=== PATIENT | female | born 1995 | race Caucasian/White ===

== ENCOUNTER 2023-06-16 09:08 | Emergency (ER) | payer OTHER ==
[2023-06-16] MEDS ORDERED: LORazepam 1 MG TAB PO STA (09:50)
--- NOTE | 2023-06-16 09:54 | CT ---
EXAMINATION TYPE: CT brain wo con CT DLP: 1027.4 mGycm, Automated exposure control for dose reduction was used. DATE OF EXAM: 06/16/2023 9:50 AM COMPARISON: None. CLINICAL INDICATION:Female, 27 years old with history of trauma, concussion symptoms, head pain TECHNIQUE: Brain: Multiple axial CT images of the brain were obtained without IV contrast. Coronal and sagittal reformats reviewed. FINDINGS: Brain: Extra-axial spaces: No abnormal extra-axial fluid collections. Ventricular system: Within normal limits Cerebral parenchyma: No acute intraparenchymal hemorrhage or mass effect. The goins-white junction is well differentiated. Cerebellum: Unremarkable. Mass effect: No evidence of midline shift. Intracranial vasculature: unremarkable Soft tissues: Normal. Calvarium/osseous structures: No depressed skull fracture. Paranasal sinuses and mastoid air cells: Clear Visualized orbits: Orbital contents are intact. IMPRESSION: No acute intracranial process.
--- NOTE | 2023-06-16 09:56 | ED ---
Head Injury HPI - General Chief complaint: Head Injury Stated complaint: concussion symptoms Time Seen by Provider: 06/16/23 09:31 Source: patient, RN notes reviewed Mode of arrival: ambulatory Limitations: no limitations - History of Present Illness Initial comments: Patient is a 27-year-old female presenting to the emergency room with further evaluation after a head injury at work on Sunday06/12/2023. After the injury she presented to urgent care and obtain an x-ray of her skull identifying no fractures and was advised that she had concussive symptoms, she was kept off work for 24 hours and return to work yesterday. She states that since returning to work she has had a return in generalized headache, or areas of confusion and labile mood. She denies any focal neurological deficits including any vision changes. She reports occasional nausea without vomiting. She denies any new trauma but does report that her work is stressful and strenuous. She denies any other complaints or concerns at this time. She has a past medical history significant for asthma. - Related Data Allergies/Adverse reactions: Allergies Allergy/AdvReac Type Severity Reaction Status Date / Time prednisone AdvReac Nausea & Verified 06/16/23 09:22 Vomiting Review of Systems ROS Statement: Those systems with pertinent positive or pertinent negative responses have been documented in the HPI. ROS Other: All systems not noted in ROS Statement are negative. Past Medical History Past Medical History: Asthma Additional Past Surgical History / Comment(s): right shoulder, right wrist. Past Psychological History: No Psychological Hx Reported Smoking Status: Never smoker Past Alcohol Use History: Occasional Past Drug Use History: Marijuana General Exam Limitations: no limitations General appearance: alert, in no apparent distress Head exam: Present: normocephalic, normal inspection Expanded Head exam: Absent: laceration, abrasion Eye exam: Present: normal appearance, PERRL, EOMI. Absent: scleral icterus, conjunctival injection, nystagmus, periorbital swelling ENT exam: Present: normal exam, mucous membranes moist Neck exam: Present: normal inspection, full ROM. Absent: tenderness Respiratory exam: Absent: respiratory distress, accessory muscle use Cardiovascular Exam: Present: regular rate GI/Abdominal exam: Absent: distended Extremities exam: Present: normal inspection, full ROM. Absent: pedal edema, joint swelling Back exam: Present: normal inspection, full ROM Neurological exam: Present: alert, oriented X3, CN II-XII intact Psychiatric exam: Present: anxious Skin exam: Present: warm, dry, intact, normal color. Absent: rash Course Vital Signs 06/16/23 06/16/23 09:18 10:45 Temperature 98.6 F 98.4 F Pulse Rate 100 89 Respiratory 18 18 Rate Blood Pressure 132/78 129/78 O2 Sat by Pulse 100 100 Oximetry Medical Decision Making - Medical Decision Making Was pt. sent in by a medical professional or institution (, PA, INSURANCE CLAIMS PROCESSOR, urgent care, hospital, or skilled nursing...) When possible be specific @ -No Did you speak to anyone other than the patient for history (EMS, parent, family, police, friend...)? What history was obtained from this source @ -No Did you review nursing and triage notes (agree or disagree)? Why? @ -I reviewed and agree with nursing and triage notes Were old charts reviewed (outside hosp., previous admission, EMS record, old EKG, old radiological studies, urgent care reports/EKG's, skilled nursing records)? Report findings @ -No old charts were reviewed Differential Diagnosis (chest pain, altered mental status, abdominal pain women, abdominal pain men, vaginal bleeding, weakness, fever, dyspnea, syncope, headache, dizziness, GI bleed, back pain, seizure, CVA, palpatations, mental health, musculoskeletal)? @ -Differential Headache: Migraine, tension, cluster, carbon monoxide, central venous thrombosis, pension karma temporal arteritis, acute closure glaucoma, intercranial hemorrhage, mastoiditis, sinusitis, head injury, this is not meant to be an all-inclusive list. EKG interpreted by me (3pts min.). @ -None done X-rays interpreted by me (1pt min.). @ -None done CT interpreted by me (1pt min.). @ -CT of the brain without contrast: No acute intracranial process, no hemorrhage, mass or shift. No skull fractures. U/S interpreted by me (1pt. min.). @ -None done What testing was considered but not performed or refused? (CT, X-rays, U/S, labs)? Why? @ -None What meds were considered but not given or refused? Why? @ -Analgesics offered and declined. Did you discuss the management of the patient with other professionals (professionals i.e. , PA, INSURANCE CLAIMS PROCESSOR, lab, RT, psych nurse, social worker masters, brick burner head, teacher, fundraising officer, case worker)? Give summary @ -No Was smoking cessation discussed for >3mins.? @ -No Was critical care preformed (if so, how long)? @ -No Were there social determinants of health that impacted care today? How? (Homelessness, low income, unemployed, alcoholism, drug addiction, transportation, low edu. Level, literacy, decrease access to med. care, correction, rehab)? @ -No Was there de-escalation of care discussed even if they declined (Discuss DNR or withdrawal of care, Hospice)? DNR status @ -No What co-morbidities impacted this encounter? (DM, HTN, Smoking, COPD, CAD, Cancer, CVA, ARF, Chemo, Hep., AIDS, mental health diagnosis, sleep apnea, morbid obesity)? @ -None Was patient admitted / discharged? Hospital course, mention meds given and route, prescriptions, significant lab abnormalities, going to OR and other pertinent info. @ -hospital course Undiagnosed new problem with uncertain prognosis? @ -27-year-old female presenting to the emergency room for further evaluation of dizziness and headache which she is having ongoing since hitting her head on a metal bar at work 4 days ago. She was evaluated in urgent care and had an x-ray which showed no acute abnormalities. She is concerned regarding her symptoms and is quite anxious. She denies any analgesic need. Advised that the symptoms are consistent with concussive symptoms and imaging of computed tomography scan not necessary for diagnosing concussion. Patient very concerned regarding headache and dizziness and is requesting to have computed tomography scan completed. Will obtain computed tomography scan of the brain and give a dose of oral Ativan for anxiety. Computed tomography scan negative for acute findings. Again discuss concussive symptoms and treatment for headache along with rest. Anxiety levels improved after oral Ativan without side effects. Questions and concerns answered. Return parameters to the emergency room discussed. Will discharge home in stable condition with symptomatic management and monitoring of concussion without loss of consciousness and closed head injury symptoms advising follow-up with primary care provider. Drug Therapy requiring intensive monitoring for toxicity (Heparin, Nitro, Insulin, Cardizem)? @ -No Were any procedures done? @ -No Diagnosis/symptom? @ -Concussion without loss of consciousness Acute, or Chronic, or Acute on Chronic? @ -Acute Uncomplicated (without systemic symptoms) or Complicated (systemic symptoms)? @ -Uncomplicated Side effects of treatment? @ -No Exacerbation, Progression, or Severe Exacerbation? @ -No Poses a threat to life or bodily function? How? (Chest pain, [place], [place], pneumonia, PE, COPD, DKA, ARF, appy, cholecystitis, CVA, Diverticulitis, Homicidal, Suicidal, threat to staff... and all critical care pts) @ -No Diagnosis/symptom? @ -Closed head injury Acute, or Chronic, or Acute on Chronic? @ -Acute Uncomplicated (without systemic symptoms) or Complicated (systemic symptoms)? @ -Uncomplicated Side effects of treatment? @ -none Exacerbation, Progression, or Severe Exacerbation] @ -no Poses a threat to life or bodily function? @ -no Case discussed with Dr. Hawley. Disposition Clinical Impression: Concussion without loss of consciousness, Closed head injury Disposition: HOME SELF-CARE Condition: Stable Instructions (If sedation given, give patient instructions): Concussion (ED) Additional Instructions: Please rest and refrain from returning to work until 10 days post incident due to your prolonged concussive symptoms. Utilize [id number] Tylenol or Motrin as needed for pain. Stay well hydrated. Please follow-up with your industrial health provider. Please return to the Emergency Department if symptoms worsen or any other concerns. Is patient prescribed a controlled substance at d/c from ED?: No Referrals: None,Stated [REFERRING] - 1-2 days Time of Disposition: 10:41
[2023-06-16 11:11] VITALS: BP 129/78; PULSE 89; RESP 18; TEMP 98.4
== END 2023-06-16 10:45 | disposition home or self-care (01) ==
LOC: EC 09:08
DX: S06.0X0A Concussion without loss of consciousness, initial encounter (principal); R40.2362 Coma scale, best motor response, obeys commands, at arrival to emergency department; R40.2142 Coma scale, eyes open, spontaneous, at arrival to emergency department; R40.2252 Coma scale, best verbal response, oriented, at arrival to emergency department; J45.909 Unspecified asthma, uncomplicated; F12.920 Cannabis use, unspecified with intoxication, uncomplicated; Z88.8 Allergy status to other drugs, medicaments and biological substances; W22.8XXA Striking against or struck by other objects, initial encounter; Y99.0 Civilian activity done for income or pay
CPT/HCPCS: 70450; 99283

== ENCOUNTER 2024-03-19 02:01 | Emergency (ER) | payer MEDICAID, OTHER ==
[2024-03-19 02:19] VITALS: BP 147/89; PULSE 125; RESP 18; TEMP 97.7
--- NOTE | 2024-03-19 02:40 | ED ---
ENT HPI - General Chief complaint: ENT Stated complaint: Can't hear Time Seen by Provider: 03/19/24 02:39 Source: patient, RN notes reviewed Mode of arrival: ambulatory Limitations: no limitations - History of Present Illness Initial comments: 28-year-old female presented to the ER with chief complaint of right ear impairment. She states since last evening she has been unable to hear out of her right ear. She states prior to that time she was cleaning her ears with toilet paper. She denies any pain. No other complaints. - Related Data Allergies Allergy/AdvReac Type Severity Reaction Status Date / Time prednisone AdvReac Nausea & Verified 03/19/24 02:07 Vomiting Review of Systems ROS Statement: Those systems with pertinent positive or pertinent negative responses have been documented in the HPI. ROS Other: All systems not noted in ROS Statement are negative. Past Medical History Past Medical History: Asthma, Thyroid Disorder History of Any Multi-Drug Resistant Organisms: None Reported Additional Past Surgical History / Comment(s): right shoulder, right wrist. Past Psychological History: No Psychological Hx Reported Smoking Status: Never smoker Past Alcohol Use History: Occasional Past Drug Use History: Marijuana General Exam General appearance: alert, in no apparent distress Head exam: Present: atraumatic, normocephalic, normal inspection ENT exam: Present: normal exam, mucous membranes moist, other (Cerumen impaction of right ear. left ear within normal limits.) Respiratory exam: Present: normal lung sounds bilaterally. Absent: respiratory distress, wheezes, rales, rhonchi, stridor Cardiovascular Exam: Present: regular rate, normal rhythm, normal heart sounds. Absent: systolic murmur, diastolic murmur, rubs, gallop, clicks Skin exam: Present: warm, dry, intact, normal color. Absent: rash Course Vital Signs 03/19/24 02:03 Temperature 97.7 F Pulse Rate 125 H Respiratory 18 Rate Blood Pressure 147/89 O2 Sat by Pulse 98 Oximetry Procedures - Ear Wax Removal Right Ear Ear Canal(s) Curetted: plastic scoops Results: Re-examined: some cerumen remains TM Visible: TM(s) intact, normal appearance Patient Tolerated Procedure: well Complications: no problems Medical Decision Making - Medical Decision Making Was pt. sent in by a medical professional or institution (, PA, TRACK WELDER, urgent care, hospital, or halfway...) When possible be specific @ -No Did you speak to anyone other than the patient for history (EMS, parent, family, police, friend...)? What history was obtained from this source @ -No Did you review nursing and triage notes (agree or disagree)? Why? @ -I reviewed and agree with nursing and triage notes Were old charts reviewed (outside hosp., previous admission, EMS record, old EKG, old radiological studies, urgent care reports/EKG's, halfway records)? Report findings @ -No old charts were reviewed Differential Diagnosis (chest pain, altered mental status, abdominal pain women, abdominal pain men, vaginal bleeding, weakness, fever, dyspnea, syncope, headache, dizziness, GI bleed, back pain, seizure, CVA, palpatations, mental health, musculoskeletal)? @ -Otitis media, otitis externa, mastoiditis, cerumen impaction this list is not meant to be all-inclusive. EKG interpreted by me (3pts min.). @ -None X-rays interpreted by me (1pt min.). @ -None done CT interpreted by me (1pt min.). @ -None done U/S interpreted by me (1pt. min.). @ -None done What testing was considered but not performed or refused? (CT, X-rays, U/S, labs)? Why? @ -None What meds were considered but not given or refused? Why? @ -None Did you discuss the management of the patient with other professionals (professionals i.e. , PA, TRACK WELDER, lab, RT, psych nurse, social services designee, cork insulation setter, teacher, first officer, case reviewer)? Give summary @ -No Was smoking cessation discussed for >3mins.? @ -No Was critical care preformed (if so, how long)? @ -No Were there social determinants of health that impacted care today? How? (Homelessness, low income, unemployed, alcoholism, drug addiction, transportation, low edu. Level, literacy, decrease access to med. care, [facility], rehab)? @ -No Was there de-escalation of care discussed even if they declined (Discuss DNR or withdrawal of care, Hospice)? DNR status @ -No What co-morbidities impacted this encounter? (DM, HTN, Smoking, COPD, CAD, Cancer, CVA, ARF, Chemo, Hep., AIDS, mental health diagnosis, sleep apnea, morbid obesity)? @ -None Was patient admitted / discharged? Hospital course, mention meds given and route, prescriptions, significant lab abnormalities, going to OR and other pertinent info. @ -Discharge. 28-year-old female presented to the ER with a chief complaint of right ear hearing impairment. History and physical exam completed. Vitals stable. Patient in no signs of acute distress and nontoxic-appearing. Right ear exam significant for cerumen impaction. Left ear unremarkable. No mastoid tenderness. Cerumen impaction removal attempted, some removed. I advised patient to follow-up with ENT. Referral given. Return parameters discussed. Patient discharged in stable condition with follow-up to ENT. Patient verbally expressed understanding and agreement with care plan. Case discussed with ED attending, Dr. Gan. Undiagnosed new problem with uncertain prognosis? @ -No Drug Therapy requiring intensive monitoring for toxicity (Heparin, Nitro, Insulin, Cardizem)? @ -No Were any procedures done? @ -No Diagnosis/symptom? @ -Cerumen impaction Acute, or Chronic, or Acute on Chronic? @ -Acute Uncomplicated (without systemic symptoms) or Complicated (systemic symptoms)? @ -Uncomplicated Side effects of treatment? @ -No Exacerbation, Progression, or Severe Exacerbation? @ -No Poses a threat to life or bodily function? How? (Chest pain, [place], [place], pneumonia, PE, COPD, DKA, ARF, appy, cholecystitis, CVA, Diverticulitis, Homicidal, Suicidal, threat to staff... and all critical care pts) @ -No Disposition Clinical Impression: Cerumen impaction Disposition: HOME SELF-CARE Condition: Stable Instructions (If sedation given, give patient instructions): Earache (ED) Additional Instructions: You may try hot water in the shower and rubbing your ear to help relieve pain. I recommend hydroperoxide and let it drain. Follow-up with ENT. Return to the ER for any new or worsening concerns. Is patient prescribed a controlled substance at d/c from ED?: No Referrals: None,Stated [Primary Care Provider] - 1-2 days Ruddy Cooper MD [STAFF PHYSICIAN] - 1-2 days Time of Disposition: 02:40
== END 2024-03-19 03:05 | disposition home or self-care (01) ==
LOC: EC 02:01
DX: H61.21 Impacted cerumen, right ear (principal); F12.90 Cannabis use, unspecified, uncomplicated; Z88.8 Allergy status to other drugs, medicaments and biological substances
CPT/HCPCS: 69210; 99282

== ENCOUNTER 2025-03-24 17:44 | Emergency (ER) | payer MEDICAID, OTHER ==
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
[2025-03-24 18:32] VITALS: RESP 16
[2025-03-24 18:58] VITALS: BP 131/86; PULSE 98; TEMP 98.1
== END 2025-03-24 19:22 | disposition home or self-care (01) ==
LOC: EC 17:44
DX: R07.89 Other chest pain (principal); Z88.8 Allergy status to other drugs, medicaments and biological substances; Y04.0XXA Assault by unarmed brawl or fight, initial encounter
CPT/HCPCS: 71046; 99284